=== PATIENT | male | born 1945 | race Caucasian/White ===

== ENCOUNTER 2023-07-15 01:11 | Emergency (ER) | payer MEDICARE, MEDICAID, SELFPAY ==
[2023-07-15] VITALS (12 sets, daily range): BP systolic 118–147; BP diastolic 44–61; PULSE 80–97; RESP 16–22; TEMP 37; O2SAT 94–100
--- NOTE | 2023-07-15 01:20 | ED_ITS ---
HPI - Recheck/Abnormal Lab/Rx 2 General: Chief Complaint: Recheck/Abnormal Lab/Rx Stated Complaint: ABNORMAL LABS Time Seen by Provider: 07/15/23 01:15 History of Present Illness: Patient was brought in by EMS today for abnormal labs. Patient is on hospice for COPD and had labs drawn today and had a hemoglobin of 5.6. EMS said there was transferring here for treatment. EMS said patient is alert to self and is at baseline. Upon questioning patient patient said he did not want blood transfusion. He did appear alert oriented. Patient is his own guardian. Nursing questioned him and found him to be alert and oriented as well. Patient's hospice nurse was called and they told the nurse this and she told us that he wanted to come here for treatment when he told him that he did not when we ask him she said try to explain it to him better which we did and he still was refusing treatment. Physical Exam 2 Const: COMMON NORMALS: no acute distress, average body habitus, no limitations, healthy appearing, alert and well nourished HENMT: COMMON NORMALS: normocephalic, atraumatic, hearing grossly normal bilaterally, external ears normal, Normal external nose present, moist oral mucous membranes and oropharynx normal; gingiva not normal (Pale) HEAD & SCALP: normocephalic and atraumatic NOSE: Normal external nose present EXTERNAL EAR: Yes external ears normal Eye: COMMON NORMALS: Equal, round and reactive pupils present, EOMs intact bilaterally, conjunctivae normal and no scleral icterus CONJUNCTIVA: Yes conjunctivae normal PUPIL: Yes Equal, round and reactive pupils present Neck/C-Spine: COMMON NORMALS: no JVD Chest: COMMONS NORMALS: normal inspection of the chest and normal palpation of entire chest wall Resp: COMMON NORMALS: normal respiratory effort, No retractions, No use of accessory muscles and clear to auscultation bilaterally AUSCULTATION: clear to auscultation bilaterally Cardio: COMMON NORMALS: no JVD, regular rate, regular rhythm, S1 normal heart sound present, S2 normal heart sound present, No gallops present (Cardio), No murmurs present (Cardio) and No rub (Cardio) RATE: regular rate RHYTHM: r egular rhythm HEART SOUNDS: S1 normal heart sound present and S2 normal heart sound present GI: COMMON NORMALS: Normal to inspection, nondistended, normoactive bowel sounds present, Soft to palpation, non-tender, No hepatosplenomegaly present and no masses PALPATION: Yes Soft to palpation and Yes No hepatosplenomegaly present Neuro: SENSORIUM/ORIENTATION: Yes alert Course 2 Vital Signs: Vital signs: Vital Signs Temperature 98.6 F 07/15/23 01:18 Pulse Rate 97 07/15/23 01:18 Respiratory Rate 16 07/15/23 01:18 Blood Pressure 139/61 07/15/23 01:18 Pulse Oximetry 94 07/15/23 01:18 MDM - Recheck/Abnormal Lab/Rx Medical Decision Making Patient came to the ER for diagnosis of low hemoglobin and probable blood transfusion however when asked if he wanted a blood transfusion he declined this nursing and myself talked to him in detail about how it might help him with fatigue and energy and caring oxygen to assist him he still declined. Patient is his own guardian. Patient appears to be alert and oriented and answers questions appropriately. Patient be discharged back to his facility. Differential Diagnosis Unlikely encounter for medication refill, encounter for wound recheck, encounter for recheck of burn, encounter for removal of sutures or warfarin-induced coagulopathy Medical Records I reviewed the patient's medical records. Lab Data I reviewed the patient's lab results. 07/15/23 01:22 07/15/23 01:43 Laboratory Results WBC 6.34 10^3/uL (3.29-11.43) 07/15/23 01:22 RBC 2.36 10^6/uL (3.85-5.65) L 07/15/23 01:22 Hgb 6.00 g/dL (11.27-16.99) L* 07/15/23 01:22 Hct 20.5 % (37-53) L* 07/15/23 01:22 MCV 86.9 fl (82-101) 07/15/23 01:22 MCH 25.4 pg (27-33) L 07/15/23 01:22 MCHC 29.3 g/dL (30-55) L 07/15/23 01:22 RDW 16.8 % (12.1-15.1) H 07/15/23 01:22 Plt Count 166 10^3/cmm (157-399) 07/15/23 01:22 MPV 12.2 fL (7.4-10.4) H 07/15/23 01:22 Neut % (Auto) 73.5 % 07/15/23 01:22 Lymph % (Auto) 13.1 % 07/15/23 01:22 Archuleta % (Auto) 11.0 % 07/15/23 01:22 Eos % (Auto) 1.7 % 07/15/23 01:22 Baso % (Auto) 0.2 % 07/15/23 01:22 Neut # (Auto) 4.66 10^3/uL (1.8-7.7) 07/15/23 01:22 Lymph # (Auto) 0.8 10^3/uL (0.8-4.8) 07/15/23 01:22 Archuleta # (Auto) 0.7 10^3/uL (0.2-0.9) 07/15/23 01:22 Eos # (Auto) 0.1 10^3/uL (0.0-0.8) 07/15/23 01:22 Baso # (Auto) 0.0 10^3/uL (0.0-0.1) 07/15/23 01:22 Nucleated RBC % (auto) 0 % 07/15/23 01:22 Nucleated RBCs # 0.0 /100WBC 07/15/23 01:22 Sodium Cancelled 07/15/23 01:22 Potassium Cancelled 07/15/23 01:22 Chloride Cancelled 07/15/23 01:22 Carbon Dioxide Cancelled 07/15/23 01:22 Anion Gap Cancelled 07/15/23 01:22 BUN Cancelled 07/15/23 01:22 Creatinine Cancelled 07/15/23 01:22 GFR Calculation Cancelled 07/15/23 01:22 Glucose Cancelled 07/15/23 01:22 Calculated Osmolality Cancelled 07/15/23 01:22 Calcium Cancelled 07/15/23 01:22 Total Bilirubin Cancelled 07/15/23 01:22 AST Cancelled 07/15/23 01:22 ALT Cancelled 07/15/23 01:22 Alkaline Phosphatase Cancelled 07/15/23 01:22 Total Protein Cancelled 07/15/23 01:22 Albumin Cancelled 07/15/23 01:22 Globulin Cancelled 07/15/23 01:22 No radiology studies performed this visit Discharge Plan Discharge Patient Disposition: Home Clinical Impression: Anemia Qualifiers: Anemia type: unspecified type Qualified Code(s): D64.9 - Anemia, unspecified Condition: Stable Discharge Orders: Discharge ED (Routine); Ordered 07/15/23 Ordered By: Yinka Childs Patient Instructions: Anemia (ED) Activity Restrictions/Additional Instructions: The recheck of your hemoglobin was 6.0 today in the ER. This would qualify you for at least 1 unit of blood. Upon nursing and myself discussing this with you you still declined wanting a blood transfusion. You are aware that the benefits would be possible increase in energy, decrease in shortness of breath, and overall improvement of general wellbeing. I would still recommend you get the blood transfusion. We will proceed with your wishes and discharge back home. If you change your mind please feel free to come back to the ER or talk with your family doctor or hospice nurse about receiving the transfusion. Coding Level of Care Code ED [employer] for [facility]
[2023-07-15 01:32] LABS: Basophils % 0.2 %; Eosinophils # 0.1 10^3/uL (0.0-0.8); Eosinophils % 1.7 %; Lymphocytes # 0.8 10^3/uL (0.8-4.8); Lymphocytes % 13.1 %; Mean Corpuscular HGB Conc 29.3 g/dL (30-55); Mean Corpuscular Hemoglobin 25.4 pg (27-33); Mean Corpuscular Volume 86.9 fl (82-101); Mean Platelet Volume 12.2 fL (7.4-10.4); Monocytes # 0.7 10^3/uL (0.2-0.9); Neutrophils # 4.66 10^3/uL (1.8-7.7); Neutrophils % 73.5 %; Nucleated Red Blood Cells % 0 %; Platelet Count 166 10^3/cmm (157-399); Red Blood Count 2.36 10^6/uL (3.85-5.65); Red Cell Distribution Width 16.8 % (12.1-15.1); White Blood Count 6.34 10^3/uL (3.29-11.43)
[2023-07-15 01:36] LABS: Hematocrit 20.5 % (37-53)
--- NOTE | 2023-07-15 01:40 | PC.NURSE ---
Nurse at facility called and updated that patient is refusing blood products. Facility states pt is his own person and made the decision to come to the hospital. Pt was explained that his hgb is low and needs blood, pt refused blood at this time.
--- NOTE | 2023-07-15 01:50 | PC.NURSE ---
Patient was informed his blood was low and need for blood transfusion. Patient refused blood products. He was asked in several ways and continually refused blood products.
[2023-07-15 02:03] LABS: Alanine Aminotransferase < 5 U/L (0-41); Albumin Level 3.5 g/dL (3.5-5.2); Alkaline Phosphatase 40 U/L (40-130); Anion Gap 16.1 (5-19); Aspartate Amino Transferase 9 U/L (0-40); Blood Urea Nitrogen 20 mg/dL (8-23); Calcium 8.3 mg/dL (8.5-10.5); Carbon Dioxide 21 mmol/L (22-29); Chloride 104 mmol/L (98-107); Globulin 3.1 g/dL (1.3-4.6); Glucose 101 mg/dL (65-115); Osmolality Calculated 287 mOsm/kg (285-295); Potassium 4.1 mmol/L (3.5-5.1); Sodium 137 mmol/L (136-145); Total Bilirubin 0.2 mg/dL (0.15-1.2); Total Protein 6.6 g/dL (6.6-8.7)
--- NOTE | 2023-07-15 07:18 | PC.PHAR ---
PT IS FROM [facility]
== END 2023-07-15 08:22 | disposition home or self-care (01) ==
PROVIDERS: Emergency Provider Emergency Medicine; PCP Internal Medicine
DX: D64.9 Anemia, unspecified (principal)
CPT/HCPCS: 80053; 85025; 99283